=== PATIENT | male | born 2000 | race Caucasian/White ===

== ENCOUNTER 2020-05-11 02:08 | Emergency (ER) | payer BC ==
[~2020-05-11] VITALS: Ht 188 cm; Wt 108.0 kg
--- NOTE | 2020-05-11 02:22 | NUR ---
PT AMBULATORY TO ROOM NOW, STEADY GAIT.
--- NOTE | 2020-05-11 02:26 | NUR ---
ERP TO BEDSIDE. PT CHANGED INTO GOWN. PT STATES HE SMOKED MARIJUANA THAT HE BELIEVES WAS LACED WITH SOMETHING ELSE. PT STATES THE MARIJUANA CAME FROM AN UNKNOWN SOURCE. PT COMPLAINING OF NAUSEA, VOMITTING X1, STATES "I'VE SMOKED BEFORE AND THIS IS 10X WORSE."
[2020-05-11] MEDS ORDERED: ONDANSETRON ODT 4 MG ONE (02:40)
[2020-05-11] MEDS ORDERED: LORazepam 1MG TABLET ONE (02:40)
[2020-05-11] MEDS ORDERED: MAALOX/HYOSCYAMINE/LIDOCAINE 45 ML BTL ONE (02:40)
[2020-05-11] MEDS ORDERED: LORazepam 1MG TABLET PO ONE (03:00)
[2020-05-11] MEDS ORDERED: ONDANSETRON ODT 4 MG PO ONE (03:00)
[2020-05-11] MEDS ORDERED: MAALOX/HYOSCYAMINE/LIDOCAINE 45 ML BTL PO ONE (03:00)
--- NOTE | 2020-05-11 03:01 | NUR ---
PT STANDING, GRABBING CHEST, MAKING FREQUENT SIGHS. PT TOLD HE COULD BE IN POSITION OF COMFORT WHETHER THAT BE STANDING OR SITTING. LIGHTS TURNED OFF TO PROMOTE REST AND FOR PT COMFORT. CALL LIGHT IN REACH. PT SEEN SITTING ON BED NOW.
--- NOTE | 2020-05-11 03:10 | NUR ---
MOTHER AT BEDSIDE.
--- NOTE | 2020-05-11 03:27 | NUR ---
PT STATES HE FEELS, "JUST REALLY SLEEPY." Addendum: 05/11/20 at 0349 by TRICIA FEELS BETTER, "JUST REALLY SLEEPY."
[2020-05-11] MEDS ORDERED: IBUPROFEN 600 MG TABLET ONE (03:39)
--- NOTE | 2020-05-11 03:49 | NUR ---
PT COMPLAINED OF WORSENING CP TO ERP. REPEAT EKG DONE, PT PLACED ON CARDIAC, BP AND O2 MONITORS, VSS. PT STATES HIS CP IS IN HIS LEFT PECTORAL MUSCLE AND THAT IT FEELS LIKE HE'S FLEXING. PT'S EYES BECOMING HEAVY WITH SLEEP, BUT EASILY ROUSED WITH VERBAL STIMULATION.
[2020-05-11 03:59] LABS: BASOPHILS # (AUTO) 0.02 x10^3/uL (0-0.1); BASOPHILS % (AUTO) 0 % (0-1); EOSINOPHILS # (AUTO) 0.42 x10^3/uL (0-0.4); EOSINOPHILS % (AUTO) 4 % (1-7); LYMPHOCYTES # (AUTO) 1.51 x10^3/uL (1-3.4); LYMPHOCYTES % (AUTO) 13 % (22-44); MD NO; MEAN CORPUSCULAR HEMOGLOBIN 30.2 pg (27.5-34.5); MEAN CORPUSCULAR HGB CONC 33.2 g/dL (33.2-36.2); MEAN PLATELET VOLUME 8.6 fL (7.4-10.4); MONOCYTES # (AUTO) 0.58 x10^3/uL (0.2-0.8); MONOCYTES % (AUTO) 5 % (2-9); NEUTROPHILS # (AUTO) 9.03 x10^3/uL (1.8-6.8); NEUTROPHILS % (AUTO) 78 % (42-75); PLATELET COUNT 225 x10^3/uL (130-400); RED BLOOD COUNT 5.13 x10^6/uL (4.38-5.82); RED CELL DISTRIBUTION WIDTH 13.2 % (9.4-14.8)
[2020-05-11] MEDS ORDERED: IBUPROFEN 200 MG TABLET PO ONE (04:00)
[2020-05-11 04:05] LABS: ANION GAP 7 mmol/L (5-15); CALCIUM 8.9 mg/dL (8.5-10.1); CHLORIDE 110 mmol/L (98-107); CREATININE 1.35 mg/dL (0.7-1.3)
[2020-05-11 04:09] LABS: TROPONIN I < 0.015 ng/mL (0.000-0.045)
[2020-05-11 04:27] VITALS: BP 131/57
== END 2020-05-11 04:49 ==
LOC: ED 04:30
DX: R07.2 Precordial pain (principal); F12.10 Cannabis abuse, uncomplicated; F41.9 Anxiety disorder, unspecified; R07.9 Chest pain, unspecified; R94.31 Abnormal electrocardiogram [ECG] [EKG]; R11.2 Nausea with vomiting, unspecified; R10.9 Unspecified abdominal pain
CPT/HCPCS: 36415; 71045; 80048; 82040; 84484; 85025; 93005; 99285; Q0162